=== PATIENT | male | born 1950 | race Caucasian/White ===

== ENCOUNTER → 2020-10-20 | Outpatient (CLI) | payer OTHER ==
--- NOTE | 2020-11-03 11:31 | PF ---
[address] [address] PULMONARY FUNCTION REPORT Name: TYSON BRASWELL Room: [facility]..#: [id number] Admission: 10/20/20 Attend Phys: Sha Nolan MD Discharge: Date of : 46 Report #: [id number] THIS REPORT FOR: cc: FAM - No family physician/PCP FAM - No family physician/PCP Andres Black MD ~ DOC #: [id number] Andres Black MD DATE OF VISIT: 10/20/2020 Only a spirometry was performed. The FEV1/FVC ratio is normal at 73% with an FVC decreased to 54%, the FEV1 is decreased to 53% and FEF 25-75 is decreased to 63%. After the administration of a bronchodilator, there is no significant increase in any of these values. The patient's post-bronchodilator FEV1 is 1.83 liters. IMPRESSION: There is a severe restrictive pattern on spirometry. Possible etiologies include severe obstruction, severe restriction, neuromuscular weakness or poor effort. Recommend considering full pulmonary function test with lung volumes to evaluate this further. Andres Black MD AP/IVAN <ELECTRONICALLY SIGNED> By: Andres Black MD 11/03/20 [id number] chu Jaquez
== END ==
LOC: M.PUL 08:31
PROVIDERS: ATTEND Orthopaedic Surgery
DX: J44.9 Chronic obstructive pulmonary disease, unspecified (principal)